=== PATIENT | male | born 1955 | race Caucasian/White ===

== ENCOUNTER 2018-04-08 06:44 | Inpatient (IN) | payer BC, MEDICARE ==
[2018-04-06 10:15] VITALS: BMI 28.7
[2018-04-08] MEDS ORDERED: Midazolam 2 MG/2 ML VIAL ONE (08:12)
[2018-04-08] MEDS ORDERED: Verapamil 2 ML ONE (08:15)
[2018-04-08] MEDS ORDERED: Nitroglycerin 50mg in D5W 50 MG/250 ML BOTTLE IV ONE (08:16)
[2018-04-08] MEDS ORDERED: Iodixanol 320 MG/ML 100 ML BOTTLE IV ONE (08:20)
[2018-04-08] MEDS ORDERED: Iohexol 350mg/ml 100 ML ONE (08:52)
[2018-04-08] MEDS ORDERED: Sodium Chloride 0.45% 1,000 ML IV SCH (09:45)
[2018-04-08] MEDS ORDERED: Enoxaparin 80 mg Syringe SC SCH (10:00)
[2018-04-08] MEDS: (Novolog) Insulin Aspart, Recombinant 100 u/ml 10 ml vial SC SCH ×3 (12:19→22:15)
--- NOTE | 2018-04-08 12:24 | CP.PCM.CON ---
<Mary Fields P - Last Filed: 04/08/18 16:18> History of Present Illness - History of Present Illness History of Present Illness: PGY-1 critical care consult note. Patient is a 63 year old male with PMHx of CAD with stent placement 2014, HTN, DM, HLD who was admitted to ICU for cardiovascular monitoring following cardiac catheterization today demonstrated triple vessel disease involving the RCA (99% occlusion), LAD and circumflex. Patient states he was sent for a catheterization following an abnormal stress test, which was done routinely. Patient denies any chest pain, arm pain, shortness of breath, palpitation, diaphoresis, nausea, vomiting, abdominal pain. Patient does admit to intermittent pedal edema, but not presently. PMHx: CAD with stent placement 2014, HTN, DM, HLD PSHx: Cardiac cath 2014, L foot surgery 2002 Meds: Valsartan 80mg PO daily, Janumet 5-500mg 1 tab PO daily, Lipitor 20mg PO daily, Metoprolol tartrate 25mg PO BID, Plavix 75mg PO daily, ASA 81mg PO daily Allergies: NKDA Social: denies tobacco and illicit drug use. +social drinker- 2x per month, 2-3 beers. Code Status: full code Proxy: Peewee, daughter: [phone] Review of Systems - Review of Systems All systems: reviewed and no additional remarkable complaints except (as per HPI ) Past Patient History - Infectious Disease Hx of Infectious Diseases: None - Past Medical History & Family History Past Medical History?: No - Past Social History Smoking Status: Never Smoked - CARDIAC Hx Cardiac Disorders: Yes (CAD) Hx Angina: Yes Hx Hypercholesterolemia: Yes Hx Hypertension: Yes Hx Peripheral Edema: Yes (NOT AT PRESENT) - PULMONARY Hx Respiratory Disorders: No - NEUROLOGICAL Hx Neurological Disorder: No - HEENT Hx HEENT Problems: No - RENAL Hx Chronic Kidney Disease: No - ENDOCRINE/METABOLIC Hx Endocrine Disorders: Yes Hx Diabetes Mellitus Type 2: Yes - HEMATOLOGICAL/ONCOLOGICAL Hx Blood Disorders: No - INTEGUMENTARY Hx Dermatological Problems: No - MUSCULOSKELETAL/RHEUMATOLOGICAL Hx Musculoskeletal Disorders: No - GASTROINTESTINAL Hx Gastrointestinal Disorders: No - GENITOURINARY/GYNECOLOGICAL Hx Genitourinary Disorders: No - PSYCHIATRIC Hx Psychophysiologic Disorder: No Hx Substance Use: No - SURGICAL HISTORY Hx Surgeries: Yes Hx Cardiac Catheterization: Yes (3 YEARS AGO) Hx Coronary Stent: Yes Hx Orthopedic Surgery: Yes (LEFT FOOT) - ANESTHESIA Hx Anesthesia: Yes Hx Anesthesia Reactions: No Hx Malignant Hyperthermia: No Has any member of the family had a problem w/ anesthesia?: No Meds Allergies/Adverse Reactions: Allergies Allergy/AdvReac Type Severity Reaction Status Date / Time No Known Allergies Allergy Verified 04/22/15 09:48 - Medications Medications: Current Medications Aspirin (Aspirin Chewable) 81 mg PO DAILY [facility] Enoxaparin Sodium (Lovenox) 80 mg SC Q12 [facility] Famotidine (Pepcid) 20 mg PO BID [facility] Sodium Chloride (Sodium Chloride 0.45%) 1,000 mls @ 75 mls/hr IV .[id number] [facility] Stop: 04/08/18 21:45 Insulin Aspart (Novolog) 0 unit SC ACHS [facility] PRN Reason: Protocol Losartan Potassium (Cozaar) 50 mg PO DAILY [facility] Metoprolol Tartrate (Lopressor) 25 mg PO BID [facility] Rosuvastatin Calcium (Crestor) 40 mg PO HS [facility] Sitagliptin Phosphate (Januvia) 50 mg PO DAILY [facility] Physical Exam - Head Exam Head Exam: ATRAUMATIC, NORMOCEPHALIC - Eye Exam Eye Exam: EOMI, PERRL - ENT Exam ENT Exam: Mucous Membranes Moist - Respiratory Exam Respiratory Exam: Clear to Auscultation Bilateral. absent: Rales, Rhonchi, Wheezes - Cardiovascular Exam Cardiovascular Exam: Bradycardia, +S1, +S2 - GI/Abdominal Exam GI & Abdominal Exam: Normal Bowel Sounds, Soft. absent: Rebound, Rigid, Tenderness - Extremities Exam Extremities exam: Positive for: full ROM, pedal pulses present. Negative for: calf tenderness, pedal edema Additional comments: Radial artery compression device noted to R wrist. - Neurological Exam Neurological exam: Alert, CN II-XII Intact, Oriented x3 - Psychiatric Exam Psychiatric exam: Normal Affect, Normal Mood - Skin Skin Exam: Dry, Normal Color, Warm Results - Labs Result Diagrams: 04/08/18 12:34 04/08/18 12:34 Labs: Laboratory Results - last 24 hr 04/08/18 09:31 POC Glucose (mg/dL) 100 Assessment & Plan - Assessment and Plan (Free Text) Plan: Patient is a 63 year old male with PMHx of CAD with stent placement 2014, HTN, DM, HLD who was admitted to ICU for cardiovascular monitoring following cardiac catheterization today demonstrated triple vessel disease involving the RCA (99% occlusion), LAD and circumflex. Patient states he was sent for a catheterization following an abnormal stress test, which was done routinely. Patient denies any chest pain, arm pain, shortness of breath, palpitation, diaphoresis, nausea, vomiting, abdominal pain. Patient does admit to intermittent pedal edema, but not presently. Neuro: AAOx3 Cardiovascular: Cardiac cath today demonstrating triple vessel disease involving the RCA (99% occlusion), LAD and circumflex Possible CABG as per cardio Echo: f/u Dr. Baez, cardiology, on the case. Lipid panel: TG 167, CHL 122, LDL 66, HDL 26 IVF ASA 81mg Lovenox 80mg SC Q12 Losartan 50mg PO daily Metoprolol tartrate 25mg PO BID Crestor PO 40mg HS Respiratory: maintain SpO2>95 Renal: BUN/Cr: 12/0.9 Infectious disease: No white count Hematology: H/H: 15.4/45.4 Gastrointestinal: Healthy heart diet Endocrine: Hgb A1c:7.4 Januvia 50mg PO daily Novolog SC ACHS accuchecks ACHS Prophylaxis: Lovenox 80mg SC Q12, Pepcid 20mg PO BID Discussed with Dr. Deven Wilson. <Herbert Wilson - Last Filed: 04/08/18 18:07> Meds - Medications Medications: Current Medications Aspirin (Aspirin Chewable) 81 mg PO DAILY [facility] Last Admin: 04/08/18 12:15 Dose: 81 mg Enoxaparin Sodium (Lovenox) 80 mg SC Q12 [facility] Famotidine (Pepcid) 20 mg PO BID [facility] Last Admin: 04/08/18 12:17 Dose: 20 mg Sodium Chloride (Sodium Chloride 0.45%) 1,000 mls @ 75 mls/hr IV .[id number] [facility] Stop: 04/08/18 21:45 Last Admin: 04/08/18 12:18 Dose: 75 mls/hr Insulin Aspart (Novolog) 0 unit SC ACHS [facility] PRN Reason: Protocol Last Admin: 04/08/18 17:24 Dose: Not Given Losartan Potassium (Cozaar) 50 mg PO DAILY [facility] Metoprolol Tartrate (Lopressor) 25 mg PO BID [facility] Last Admin: 04/08/18 12:17 Dose: Not Given Rosuvastatin Calcium (Crestor) 40 mg PO HS [facility] Sitagliptin Phosphate (Januvia) 50 mg PO DAILY [facility] Last Admin: 04/08/18 12:16 Dose: 50 mg Results - Vital Signs Recent Vital Signs: Last Vital Signs Temp 97.7 F 04/08/18 16:00 Pulse 51 L 04/08/18 16:13 Resp 18 04/08/18 16:13 BP 140/78 04/08/18 16:13 Pulse Ox 99 04/08/18 16:13 - Labs Result Diagrams: 04/08/18 12:34 04/08/18 12:34 Labs: Laboratory Results - last 24 hr 04/08/18 04/08/18 04/08/18 09:31 11:57 12:34 WBC 9.6 RBC 5.25 Hgb 15.4 Hct 45.4 MCV 86.5 MCH 29.3 MCHC 33.9 RDW 13.8 Plt Count 183 MPV 9.0 Neut % (Auto) 43.6 L Lymph % (Auto) 45.4 H Weber % (Auto) 7.5 Eos % (Auto) 2.5 Baso % (Auto) 1.0 Neut # (Auto) 4.2 Lymph # (Auto) 4.4 H Weber # (Auto) 0.7 Eos # (Auto) 0.2 Baso # (Auto) 0.1 Sodium Potassium Chloride Carbon Dioxide Anion Gap BUN Creatinine Est GFR ( Amer) Est GFR (Non-Af Amer) POC Glucose (mg/dL) 100 105 Random Glucose Hemoglobin A1c Calcium Total Bilirubin AST ALT Alkaline Phosphatase Total Protein Albumin Globulin Albumin/Globulin Ratio Triglycerides Cholesterol LDL Cholesterol Direct HDL Cholesterol 04/08/18 04/08/18 04/08/18 12:34 12:34 16:05 WBC RBC Hgb Hct MCV MCH MCHC RDW Plt Count MPV Neut % (Auto) Lymph % (Auto) Weber % (Auto) Eos % (Auto) Baso % (Auto) Neut # (Auto) Lymph # (Auto) Weber # (Auto) Eos # (Auto) Baso # (Auto) Sodium 143 Potassium 3.9 Chloride 104 Carbon Dioxide 26 Anion Gap 17 BUN 12 Creatinine 0.9 Est GFR ( Amer) > 60 Est GFR (Non-Af Amer) > 60 POC Glucose (mg/dL) 104 Random Glucose 102 Hemoglobin A1c 7.4 H Calcium 9.2 Total Bilirubin 0.9 AST 30 ALT 37 Alkaline Phosphatase 66 Total Protein 7.7 Albumin 4.4 Globulin 3.3 Albumin/Globulin Ratio 1.3 Triglycerides 167 H Cholesterol 122 LDL Cholesterol Direct 66 HDL Cholesterol 26 L Assessment & Plan - Assessment and Plan (Free Text) Plan: Above patient seen and examined at bedside. PAtient post of cardiac cath without any PCI. Patient remains hemodynamically stable. -can be transferred to telemetry - Date & Time Date: 04/08/18 Time: 18:07
[2018-04-08 12:41] LABS: BASO # 0.1 K/uL (0.0-0.2); EOS # 0.2 K/uL (0.0-0.7); EOS % 2.5 % (0.0-4.0); HEMOGLOBIN 15.4 g/dL (12.0-18.0); LYMPH # 4.4 K/uL (1.0-4.3); LYMPH % 45.4 % (20.0-40.0); MEAN CELL VOLUME 86.5 fL (80.0-94.0); MEAN CORPUSCULAR HEMOGLOBIN 29.3 pg (27.0-31.0); MEAN CORPUSCULAR HGB CONC 33.9 g/dL (33.0-37.0); MONO # 0.7 K/uL (0.0-0.8); MONO % 7.5 % (0.0-10.0); NEUT # 4.2 K/uL (1.8-7.0); NEUT % 43.6 % (50.0-75.0); NRBC % 0.2 % (0.0-2.0); RBC 5.25 Mil/uL (4.40-5.90); RED CELL DISTRIBUTION WIDTH 13.8 % (11.5-14.5); WHITE BLOOD COUNT 9.6 K/uL (4.8-10.8)
[2018-04-08 13:03] LABS: ALB/GLOB RATIO 1.3 (1.0-2.1); ALBUMIN 4.4 g/dL (3.5-5.0); ALT/SGPT 37 U/L (21-72); AST/SGOT 30 U/L (17-59); BLOOD UREA NITROGEN 12 mg/dL (9-20); CALCIUM 9.2 mg/dl (8.6-10.4); GFR AFRICAN-AMERICAN > 60; GFR NON-AFRICAN AMERICAN > 60; HDL CHOLESTEROL 26 mg/dL (30-70)
[2018-04-08 13:11] LABS: LDL CHOLESTEROL 66 mg/dL (0-129)
--- NOTE | 2018-04-08 19:03 | CARD ---
APPROVED REPORT Date of service: 04/08/2018 EXAM: Two-dimensional and M-mode echocardiogram with Doppler and color Doppler. Other Information Quality : GoodRhythm : INDICATION Abnormal EKG/Arrhythmia Cardiac Disease: CAD 2D DIMENSIONS IVSd1.1 (0.7-1.1cm)Aortic Root (2D)2.6 (2.0-3.7cm) LVDd4.6 (3.9-5.9cm)PWd1.0 (0.7-1.1cm) LVDs2.8 (2.5-4.0cm)FS (%) 39.3 % LVEF (%)69.8 (>50%) M-Mode DIMENSIONS RVDd2.99 (2.1-3.2cm)Left Atrium (MM)4.35 (2.5-4.0cm) IVSd0.77 (0.7-1.1cm)Aortic Root3.32 (2.2-3.7cm) LVDd5.79 (4.0-5.6cm)Aortic Cusp Exc.1.99 (1.5-2.0cm) PWd0.89 (0.7-1.1cm)FS (%) 44 % LVDs3.25 (2.0-3.8cm)LVEF (%)74 (>50%) Mitral Valve MV E Worevqex33.3cm/sMV A Qjocxjxw68.0cm/sE/A ratio0.7 TDI E/Lateral E'0.0E/Medial E'0.0 Tricuspid Valve TR Peak [id number]/sTR Peak Gr.[id number] LEFT VENTRICLE The left ventricle is normal size. There is normal left ventricular wall thickness. The left ventricular systolic function is normal. The left ventricular ejection fraction is within the normal range. There is borderline hypokinesis in the mid-inferosepta and mid- anterior hunt. Transmitral Doppler flow pattern is Grade I-abnormal relaxation pattern. Normal left atrial pressure by Tissue Doppler. RIGHT VENTRICLE The right ventricle is normal size. The right ventricular systolic function is normal. ATRIA The left atrium size is normal. The right atrium size is normal. AORTIC VALVE The aortic valve is normal in structure. No aortic regurgitation is present. MITRAL VALVE The mitral valve is normal in structure. There is no mitral valve regurgitation noted. TRICUSPID VALVE The tricuspid valve is normal in structure. There is trace to mild tricuspid regurgitation. Right ventricular systolic pressure is estimated at less than 30 mmHg. PULMONIC VALVE The pulmonary valve is normal in structure. There is no pulmonic valvular regurgitation. GREAT VESSELS The aortic root is normal size. The aortic root displays mild to moderate sclerocalcific changes. The IVC is normal in size and collapses >50% with inspiration. PERICARDIAL EFFUSION There is no pericardial effusion. <Conclusion> Normal left ventricular size, wall thickness and systolic function. There is borderline to mild hypokinesis in the mid-inferoseptal and mid- anterior segments of the left ventricle compatible with the history of coronary heart disease. Diastolic dysfunction Grade I-abnormal relaxation pattern. Normal left atrial pressure by Tissue Doppler. The right ventricular systolic function is normal. No gross valvular abnormality. The aortic root displays mild to moderate sclerocalcific changes. There is no pericardial effusion.
--- NOTE | 2018-04-08 19:30 | CARDCATH ---
Copied To: Raghu Baez MD Attending MD: Raghu Baez MD PROCEDURE DATE: 04/08/2018 PROCEDURES: 1. Left heart catheterization. 2. Coronary angiogram. CLINICAL INDICATIONS: 1. Chest pain. 2. Abnormal stress test. 3. History of coronary artery disease, multivessel stenting. 4. Hypertension. 5. Hyperlipidemia. 6. Diabetes. PERFORMING PHYSICIAN: Raghu Baez MD DESCRIPTION OF PROCEDURE: After informed consent, the patient was prepped and draped in the usual sterile fashion. 2% lidocaine was given in the right wrist for local anesthesia. Using micropuncture technique, a 6-Turkish sheath was introduced into the right radial artery. A JR4 6-Turkish diagnostic catheter was crossed into left ventricle across the aortic valve. LV end-diastolic pressure was measured. Contrast injected and the LV angiogram was done. Then, the catheter was pulled back. The gradient across the aortic valve was measured. Then, the same catheter was engaged into the right coronary artery. Contrast injected and right coronary angiogram was done. Then, the catheter was exchanged to 6-Turkish [place] catheter. The catheter was engaged into the left main coronary artery. Contrast injected and left coronary angiogram was done. The patient tolerated the procedure well. Postprocedure, Terumo radial band was applied with excellent hemostasis. Radiological interpretation of the coronary imaging was done. FINDINGS: 1. Left main coronary artery is patent. 2. Ostial LAD has 80% stenosis. 3. Vrb-vp-xqolic LAD stent is patent. D1 has 70% stenosis. 4. Left circumflex is codominant system. Proximal left circumflex has 80% stenosis. Obtuse marginal 1 artery has a 95% stenosis. 5. Right coronary artery has 99% mid stenosis. Distal right coronary artery stent is patent. 6. LV ejection fraction is approximately 50% to 55%. Mild global hypokinesis. EDP is 17. No gradient across the aortic valve. IMPRESSION: 1. Triple-vessel disease as described above. 2. Diabetes. 3. Hypertension. 4. Normal left ventricular systolic function. PLAN: Patient will be admitted to intensive care unit for further management. Raghu Baez MD [facility] # [id number]
[2018-04-08] MEDS: Enoxaparin 80 mg Syringe SC SCH (22:20)
[2018-04-09 06:32] LABS: BASO % 0.4 % (0.0-2.0); EOS # 0.2 K/uL (0.0-0.7); EOS % 2.3 % (0.0-4.0); HEMOGLOBIN 15.2 g/dL (12.0-18.0); LYMPH # 4.4 K/uL (1.0-4.3); LYMPH % 41.3 % (20.0-40.0); MEAN CORPUSCULAR HEMOGLOBIN 29.4 pg (27.0-31.0); MEAN CORPUSCULAR HGB CONC 34.1 g/dL (33.0-37.0); MEAN PLATELET VOLUME 9.5 fL (7.2-11.7); MONO % 9.8 % (0.0-10.0); NEUT # 4.9 K/uL (1.8-7.0); NEUT % 46.2 % (50.0-75.0); NRBC % 0.2 % (0.0-2.0); RBC 5.16 Mil/uL (4.40-5.90); RED CELL DISTRIBUTION WIDTH 13.7 % (11.5-14.5); WHITE BLOOD COUNT 10.6 K/uL (4.8-10.8)
--- NOTE | 2018-04-09 06:36 | CP.PCM.PN ---
Subjective - Date & Time of Evaluation Date of Evaluation: 04/08/18 Time of Evaluation: 19:30 - Subjective Subjective: Patient s/p cath Triple vessel CAD and DM 2 CABG vs. Multi vessel PCI to be decided after d/w the patient and the family Objective - Vital Signs/Intake and Output Vital Signs (last 24 hours): Temp Pulse Resp BP Pulse Ox 98 F 64 19 139/85 98 04/09/18 04:00 04/09/18 05:15 04/09/18 05:15 04/09/18 05:15 04/09/18 05:15 Intake and Output: 04/08/18 04/09/18 18:59 06:59 Intake Total 675 240 Output Total 450 600 Balance 225 -360 - Medications Medications: Current Medications Aspirin (Aspirin Chewable) 81 mg PO DAILY [facility] Last Admin: 04/08/18 12:15 Dose: 81 mg Enoxaparin Sodium (Lovenox) 80 mg SC Q12 [facility] Last Admin: 04/08/18 22:20 Dose: 80 mg Famotidine (Pepcid) 20 mg PO BID [facility] Last Admin: 04/08/18 18:06 Dose: 20 mg Insulin Aspart (Novolog) 0 unit SC [facility] PRN Reason: Protocol Last Admin: 04/08/18 22:15 Dose: Not Given Losartan Potassium (Cozaar) 50 mg PO DAILY [facility] Metoprolol Tartrate (Lopressor) 25 mg PO BID [facility] Last Admin: 04/08/18 18:06 Dose: Not Given Rosuvastatin Calcium (Crestor) 40 mg PO HS [facility] Last Admin: 04/08/18 22:20 Dose: 40 mg Sitagliptin Phosphate (Januvia) 50 mg PO DAILY [facility] Last Admin: 04/08/18 12:16 Dose: 50 mg - Labs Labs: 04/08/18 12:34 04/08/18 12:34
[2018-04-09 06:47] LABS: ALB/GLOB RATIO 1.3 (1.0-2.1); ALBUMIN 3.9 g/dL (3.5-5.0); ALT/SGPT 36 U/L (21-72); AST/SGOT 20 U/L (17-59); BLOOD UREA NITROGEN 15 mg/dL (9-20); GFR AFRICAN-AMERICAN > 60; GFR NON-AFRICAN AMERICAN > 60
--- NOTE | 2018-04-09 08:27 | CP.PCM.HP ---
Past Patient History - Infectious Disease Hx of Infectious Diseases: None - Past Medical History & Family History Past Medical History?: No - Past Social History Smoking Status: Never Smoked - CARDIAC Hx Cardiac Disorders: Yes (CAD) Hx Angina: Yes Hx Hypercholesterolemia: Yes Hx Hypertension: Yes Hx Peripheral Edema: Yes (NOT AT PRESENT) - PULMONARY Hx Respiratory Disorders: No - NEUROLOGICAL Hx Neurological Disorder: No - HEENT Hx HEENT Problems: No - RENAL Hx Chronic Kidney Disease: No - ENDOCRINE/METABOLIC Hx Endocrine Disorders: Yes Hx Diabetes Mellitus Type 2: Yes - HEMATOLOGICAL/ONCOLOGICAL Hx Blood Disorders: No - INTEGUMENTARY Hx Dermatological Problems: No - MUSCULOSKELETAL/RHEUMATOLOGICAL Hx Musculoskeletal Disorders: No - GASTROINTESTINAL Hx Gastrointestinal Disorders: No - GENITOURINARY/GYNECOLOGICAL Hx Genitourinary Disorders: No - PSYCHIATRIC Hx Psychophysiologic Disorder: No Hx Substance Use: No - SURGICAL HISTORY Hx Surgeries: Yes Hx Cardiac Catheterization: Yes (3 YEARS AGO) Hx Coronary Stent: Yes Hx Orthopedic Surgery: Yes (LEFT FOOT) - ANESTHESIA Hx Anesthesia: Yes Hx Anesthesia Reactions: No Hx Malignant Hyperthermia: No Has any member of the family had a problem w/ anesthesia?: No Meds Allergies/Adverse Reactions: Allergies Allergy/AdvReac Type Severity Reaction Status Date / Time No Known Allergies Allergy Verified 04/22/15 09:48 Results - Vital Signs Recent Vital Signs: Last Vital Signs Temp 98 F 04/09/18 04:00 Pulse 64 04/09/18 05:15 Resp 19 04/09/18 05:15 BP 139/85 04/09/18 05:15 Pulse Ox 98 04/09/18 05:15 - Labs Result Diagrams: 04/09/18 06:21 04/09/18 06:17 Labs: Laboratory Results - last 24 hr 04/08/18 04/08/18 04/08/18 09:31 11:57 12:34 WBC 9.6 RBC 5.25 Hgb 15.4 Hct 45.4 MCV 86.5 MCH 29.3 MCHC 33.9 RDW 13.8 Plt Count 183 MPV 9.0 Neut % (Auto) 43.6 L Lymph % (Auto) 45.4 H [place] % (Auto) 7.5 Eos % (Auto) 2.5 Baso % (Auto) 1.0 Neut # (Auto) 4.2 Lymph # (Auto) 4.4 H [place] # (Auto) 0.7 Eos # (Auto) 0.2 Baso # (Auto) 0.1 Sodium Potassium Chloride Carbon Dioxide Anion Gap BUN Creatinine Est GFR ( Amer) Est GFR (Non-Af Amer) POC Glucose (mg/dL) 100 105 Random Glucose Hemoglobin A1c Calcium Phosphorus Magnesium Total Bilirubin AST ALT Alkaline Phosphatase Total Protein Albumin Globulin Albumin/Globulin Ratio Triglycerides Cholesterol LDL Cholesterol Direct HDL Cholesterol 04/08/18 04/08/18 04/08/18 12:34 12:34 16:05 WBC RBC Hgb Hct MCV MCH MCHC RDW Plt Count MPV Neut % (Auto) Lymph % (Auto) [place] % (Auto) Eos % (Auto) Baso % (Auto) Neut # (Auto) Lymph # (Auto) [place] # (Auto) Eos # (Auto) Baso # (Auto) Sodium 143 Potassium 3.9 Chloride 104 Carbon Dioxide 26 Anion Gap 17 BUN 12 Creatinine 0.9 Est GFR ( Amer) > 60 Est GFR (Non-Af Amer) > 60 POC Glucose (mg/dL) 104 Random Glucose 102 Hemoglobin A1c 7.4 H Calcium 9.2 Phosphorus Magnesium Total Bilirubin 0.9 AST 30 ALT 37 Alkaline Phosphatase 66 Total Protein 7.7 Albumin 4.4 Globulin 3.3 Albumin/Globulin Ratio 1.3 Triglycerides 167 H Cholesterol 122 LDL Cholesterol Direct 66 HDL Cholesterol 26 L 04/09/18 04/09/18 06:17 06:21 WBC 10.6 RBC 5.16 Hgb 15.2 Hct 44.4 MCV 86.0 MCH 29.4 MCHC 34.1 RDW 13.7 Plt Count 204 MPV 9.5 Neut % (Auto) 46.2 L Lymph % (Auto) 41.3 H [place] % (Auto) 9.8 Eos % (Auto) 2.3 Baso % (Auto) 0.4 Neut # (Auto) 4.9 Lymph # (Auto) 4.4 H [place] # (Auto) 1.0 H Eos # (Auto) 0.2 Baso # (Auto) 0.0 Sodium 142 Potassium 3.8 Chloride 103 Carbon Dioxide 25 Anion Gap 18 BUN 15 Creatinine 1.0 Est GFR ( Amer) > 60 Est GFR (Non-Af Amer) > 60 POC Glucose (mg/dL) Random Glucose 81 Hemoglobin A1c Calcium 8.0 L Phosphorus 3.6 Magnesium 1.9 Total Bilirubin 0.6 AST 20 ALT 36 Alkaline Phosphatase 56 Total Protein 6.9 Albumin 3.9 Globulin 3.0 Albumin/Globulin Ratio 1.3 Triglycerides Cholesterol LDL Cholesterol Direct HDL Cholesterol
[2018-04-09] MEDS: (Novolog) Insulin Aspart, Recombinant 100 u/ml 10 ml vial SC SCH ×4 (09:03→22:21)
[2018-04-09] MEDS: Enoxaparin 80 mg Syringe SC SCH ×2 (09:21→21:19)
--- NOTE | 2018-04-10 00:21 | CP.PCM.PN ---
Subjective - Date & Time of Evaluation Date of Evaluation: 04/09/18 Time of Evaluation: 13:05 - Subjective Subjective: Patient seen and evaluated Denies chest pain and dyspnea Triple vessel CAD and DM 2 Recommend CABG Patient will let me know CABG Vs. PCI by tomorrow PMHx: CAD with stent placement 2015, HTN, DM, HLD PSHx: Cardiac cath 2014, L foot surgery 2002 Meds: Valsartan 80mg PO daily, Janumet 5-500mg 1 tab PO daily, Lipitor 20mg PO daily, Metoprolol tartrate 25mg PO BID, Plavix 75mg PO daily, ASA 81mg PO daily Allergies: NKDA Social: denies tobacco and illicit drug use. +social drinker- 2x per month, 2-3 beers. Code Status: full code Proxy: Peewee daughter: [phone] Review of Systems - Review of Systems All systems: reviewed and no additional remarkable complaints except (as per HPI ) Physical Exam - Head Exam Head Exam: ATRAUMATIC, NORMOCEPHALIC - Eye Exam Eye Exam: EOMI, PERRL - ENT Exam ENT Exam: Mucous Membranes Moist - Respiratory Exam Respiratory Exam: Clear to Auscultation Bilateral. absent: Rales, Rhonchi, Wheezes - Cardiovascular Exam Cardiovascular Exam: Bradycardia, +S1, +S2 - GI/Abdominal Exam GI & Abdominal Exam: Normal Bowel Sounds, Soft. absent: Rebound, Rigid, Tenderness - Extremities Exam Extremities exam: Positive for: full ROM, pedal pulses present. Negative for: calf tenderness, pedal edema Additional comments: Radial artery compression device noted to R wrist. - Neurological Exam Neurological exam: Alert, CN II-XII Intact, Oriented x3 - Psychiatric Exam Psychiatric exam: Normal Affect, Normal Mood - Skin Skin Exam: Dry, Normal Color, Warm Objective - Vital Signs/Intake and Output Vital Signs (last 24 hours): Temp Pulse Resp BP Pulse Ox 98.6 F 57 L 16 159/90 H 97 04/09/18 20:00 04/09/18 18:00 04/09/18 16:00 04/09/18 18:00 04/09/18 16:00 Intake and Output: 04/09/18 04/10/18 18:59 06:59 Intake Total 800 Output Total 850 Balance -50 - Medications Medications: Current Medications Aspirin (Aspirin Chewable) 81 mg PO DAILY [facility] Last Admin: 04/09/18 09:19 Dose: 81 mg Enoxaparin Sodium (Lovenox) 80 mg SC Q12 [facility] Last Admin: 04/09/18 21:19 Dose: 80 mg Famotidine (Pepcid) 20 mg PO BID [facility] Last Admin: 04/09/18 18:00 Dose: 20 mg Insulin Aspart (Novolog) 0 unit SC ACHS [facility] PRN Reason: Protocol Last Admin: 04/09/18 22:21 Dose: Not Given Losartan Potassium (Cozaar) 50 mg PO DAILY [facility] Last Admin: 04/09/18 09:20 Dose: 50 mg Metoprolol Tartrate (Lopressor) 25 mg PO BID [facility] Last Admin: 04/09/18 18:00 Dose: 25 mg Rosuvastatin Calcium (Crestor) 40 mg PO HS [facility] Last Admin: 04/09/18 21:18 Dose: 40 mg Sitagliptin Phosphate (Januvia) 50 mg PO DAILY [facility] Last Admin: 04/09/18 09:20 Dose: 50 mg - Labs Labs: 04/09/18 06:21 04/09/18 06:17 Assessment and Plan - Assessment and Plan (Free Text) Assessment: Patient s/p cath Triple vessel CAD and DM 2 CABG vs. Multi vessel PCI to be decided after d/w the patient and the family
[2018-04-10 06:46] LABS: BASO # 0.1 K/uL (0.0-0.2); BASO % 0.6 % (0.0-2.0); EOS # 0.4 K/uL (0.0-0.7); EOS % 3.4 % (0.0-4.0); HEMOGLOBIN 15.5 g/dL (12.0-18.0); LYMPH % 37.6 % (20.0-40.0); MEAN CELL VOLUME 87.2 fL (80.0-94.0); MEAN CORPUSCULAR HEMOGLOBIN 29.1 pg (27.0-31.0); MEAN CORPUSCULAR HGB CONC 33.4 g/dL (33.0-37.0); MEAN PLATELET VOLUME 9.5 fL (7.2-11.7); MONO # 1.1 K/uL (0.0-0.8); MONO % 10.5 % (0.0-10.0); NEUT # 5.1 K/uL (1.8-7.0); NEUT % 47.9 % (50.0-75.0); NRBC % 0.1 % (0.0-2.0); RBC 5.31 Mil/uL (4.40-5.90); WHITE BLOOD COUNT 10.7 K/uL (4.8-10.8)
[2018-04-10 06:50] LABS: ALB/GLOB RATIO 1.3 (1.0-2.1); ALBUMIN 4.2 g/dL (3.5-5.0); ALT/SGPT 45 U/L (21-72); AST/SGOT 39 U/L (17-59); BLOOD UREA NITROGEN 14 mg/dL (9-20); CALCIUM 9.3 mg/dl (8.6-10.4); GFR AFRICAN-AMERICAN > 60; GFR NON-AFRICAN AMERICAN > 60
[2018-04-10] MEDS: Enoxaparin 80 mg Syringe SC SCH ×2 (11:41→21:41)
[2018-04-10] MEDS: (Novolog) Insulin Aspart, Recombinant 100 u/ml 10 ml vial SC SCH ×4 (11:41→22:00)
--- NOTE | 2018-04-10 22:14 | CP.PCM.PN ---
Subjective - Date & Time of Evaluation Date of Evaluation: 04/10/18 Time of Evaluation: 18:20 - Subjective Subjective: Patient would like to go for CABG To be transferred tomorrow for CABG sometime this week Continue current meds Physical Exam - Head Exam Head Exam: ATRAUMATIC, NORMOCEPHALIC - Eye Exam Eye Exam: EOMI, PERRL - ENT Exam ENT Exam: Mucous Membranes Moist - Respiratory Exam Respiratory Exam: Clear to Auscultation Bilateral. absent: Rales, Rhonchi, Wheezes - Cardiovascular Exam Cardiovascular Exam: Bradycardia, +S1, +S2 - GI/Abdominal Exam GI & Abdominal Exam: Normal Bowel Sounds, Soft. absent: Rebound, Rigid, Tenderness - Extremities Exam Extremities exam: Positive for: full ROM, pedal pulses present. Negative for: calf tenderness, pedal edema Additional comments: Radial artery compression device noted to R wrist. - Neurological Exam Neurological exam: Alert, CN II-XII Intact, Oriented x3 - Psychiatric Exam Psychiatric exam: Normal Affect, Normal Mood - Skin Skin Exam: Dry, Normal Color, Warm Objective - Vital Signs/Intake and Output Vital Signs (last 24 hours): Temp Pulse Resp BP Pulse Ox 98.0 F 62 18 121/78 98 04/10/18 16:00 04/10/18 16:00 04/10/18 16:00 04/10/18 17:33 04/10/18 16:00 Intake and Output: 04/10/18 04/11/18 18:59 06:59 Intake Total 1160 Output Total 750 Balance 410 - Medications Medications: Current Medications Aspirin (Aspirin Chewable) 81 mg PO DAILY [facility] Last Admin: 04/10/18 11:40 Dose: 81 mg Enoxaparin Sodium (Lovenox) 80 mg SC Q12 [facility] Last Admin: 04/10/18 21:41 Dose: 80 mg Famotidine (Pepcid) 20 mg PO BID [facility] Last Admin: 04/10/18 17:33 Dose: 20 mg Insulin Aspart (Novolog) 0 unit SC ACHS [facility] PRN Reason: Protocol Last Admin: 04/10/18 17:31 Dose: Not Given Losartan Potassium (Cozaar) 50 mg PO DAILY [facility] Last Admin: 04/10/18 11:40 Dose: 50 mg Metoprolol Tartrate (Lopressor) 25 mg PO BID [facility] Last Admin: 08/12/18 17:33 Dose: 25 mg Rosuvastatin Calcium (Crestor) 40 mg PO HS [facility] Last Admin: 04/10/18 21:41 Dose: 40 mg Sitagliptin Phosphate (Januvia) 50 mg PO DAILY [facility] Last Admin: 04/10/18 11:40 Dose: 50 mg - Labs Labs: 04/10/18 06:26 04/10/18 06:26 Assessment and Plan - Assessment and Plan (Free Text) Assessment: Patient is a 63 year old male with PMHx of CAD with stent placement 2014, HTN, DM, HLD who was admitted to ICU for cardiovascular monitoring following cardiac catheterization today demonstrated triple vessel disease involving the RCA (99% occlusion), LAD and circumflex. Patient states he was sent for a catheterization following an abnormal stress test, which was done routinely. Patient denies any chest pain, arm pain, shortness of breath, palpitation, diaphoresis, nausea, vomiting, abdominal pain. Patient does admit to intermittent pedal edema, but not presently. Neuro: AAOx3 Cardiovascular: Cardiac cath today demonstrating triple vessel disease involving the RCA (99% occlusion), LAD and circumflex For CABG sometime this week For transfer to [facility] [place] [place] tomorrow Respiratory: maintain SpO2>95 Renal: BUN/Cr: 12/0.9 Infectious disease: No white count Hematology: H/H: 15.4/45.4 Gastrointestinal: Healthy heart diet Endocrine: Hgb A1c:7.4 Januvia 50mg PO daily Novolog SC ACHS accuchecks ACHS Prophylaxis: Lovenox 80mg SC Q12, Pepcid 20mg PO BID
[2018-04-11 06:26] LABS: BASO # 0.1 K/uL (0.0-0.2); BASO % 0.5 % (0.0-2.0); EOS # 0.4 K/uL (0.0-0.7); EOS % 3.6 % (0.0-4.0); HEMOGLOBIN 15.7 g/dL (12.0-18.0); LYMPH # 3.5 K/uL (1.0-4.3); LYMPH % 35.9 % (20.0-40.0); MEAN CELL VOLUME 87.1 fL (80.0-94.0); MEAN CORPUSCULAR HEMOGLOBIN 29.2 pg (27.0-31.0); MEAN CORPUSCULAR HGB CONC 33.5 g/dL (33.0-37.0); MEAN PLATELET VOLUME 9.5 fL (7.2-11.7); MONO # 1.1 K/uL (0.0-0.8); MONO % 11.1 % (0.0-10.0); NEUT # 4.8 K/uL (1.8-7.0); NEUT % 48.9 % (50.0-75.0); NRBC % 0.5 % (0.0-2.0); RBC 5.39 Mil/uL (4.40-5.90); RED CELL DISTRIBUTION WIDTH 13.8 % (11.5-14.5); WHITE BLOOD COUNT 9.9 K/uL (4.8-10.8)
[2018-04-11 06:44] LABS: INR 1.1; PROTHROMBIN TIME 12.5 SECONDS (9.7-12.2)
[2018-04-11 06:47] LABS: ALB/GLOB RATIO 1.3 (1.0-2.1); ALBUMIN 4.4 g/dL (3.5-5.0); ALT/SGPT 113 U/L (21-72); AST/SGOT 72 U/L (17-59); BLOOD UREA NITROGEN 18 mg/dL (9-20); CALCIUM 9.4 mg/dl (8.6-10.4); GFR AFRICAN-AMERICAN > 60; GFR NON-AFRICAN AMERICAN > 60
[2018-04-11] MEDS: (Novolog) Insulin Aspart, Recombinant 100 u/ml 10 ml vial SC SCH ×3 (07:30→17:06)
--- NOTE | 2018-04-11 08:49 | CP.PCM.PN ---
Subjective - Date & Time of Evaluation Date of Evaluation: 04/09/18 Objective - Vital Signs/Intake and Output Vital Signs (last 24 hours): Temp Pulse Resp BP Pulse Ox 98.5 F 59 L 18 150/94 H 98 04/11/18 04:00 04/11/18 04:00 04/11/18 04:00 04/11/18 04:00 04/11/18 00:00 Intake and Output: 04/11/18 04/11/18 06:59 18:59 Intake Total 100 Output Total 1100 Balance -1000 - Medications Medications: Current Medications Aspirin (Aspirin Chewable) 81 mg PO DAILY [facility] Last Admin: 04/10/18 11:40 Dose: 81 mg Enoxaparin Sodium (Lovenox) 80 mg SC Q12 [facility] Last Admin: 04/10/18 21:41 Dose: 80 mg Famotidine (Pepcid) 20 mg PO BID [facility] Last Admin: 04/10/18 17:33 Dose: 20 mg Insulin Aspart (Novolog) 0 unit SC [facility] PRN Reason: Protocol Last Admin: 04/10/18 22:00 Dose: Not Given Losartan Potassium (Cozaar) 50 mg PO DAILY [facility] Last Admin: 04/10/18 11:40 Dose: 50 mg Metoprolol Tartrate (Lopressor) 25 mg PO BID [facility] Last Admin: 04/10/18 17:33 Dose: 25 mg Rosuvastatin Calcium (Crestor) 40 mg PO HS [facility] Last Admin: 04/10/18 21:41 Dose: 40 mg Sitagliptin Phosphate (Januvia) 50 mg PO DAILY [facility] Last Admin: 04/10/18 11:40 Dose: 50 mg - Labs Labs: 04/11/18 06:17 04/11/18 06:17 PT 12.5 SECONDS (9.7-12.2) H 04/11/18 06:17 INR 1.1 04/11/18 06:17 APTT 51 SECONDS (21-34) H 04/11/18 06:17
--- NOTE | 2018-04-11 08:49 | CP.PCM.PN ---
Subjective - Date & Time of Evaluation Date of Evaluation: 04/10/18 Objective - Vital Signs/Intake and Output Vital Signs (last 24 hours): Temp Pulse Resp BP Pulse Ox 98.5 F 59 L 18 150/94 H 98 04/11/18 04:00 04/11/18 04:00 04/11/18 04:00 04/11/18 04:00 04/11/18 00:00 Intake and Output: 04/11/18 04/11/18 06:59 18:59 Intake Total 100 Output Total 1100 Balance -1000 - Medications Medications: Current Medications Aspirin (Aspirin Chewable) 81 mg PO DAILY [facility] Last Admin: 04/10/18 11:40 Dose: 81 mg Enoxaparin Sodium (Lovenox) 80 mg SC Q12 [facility] Last Admin: 04/10/18 21:41 Dose: 80 mg Famotidine (Pepcid) 20 mg PO BID [facility] Last Admin: 04/10/18 17:33 Dose: 20 mg Insulin Aspart (Novolog) 0 unit SC [facility] PRN Reason: Protocol Last Admin: 04/10/18 22:00 Dose: Not Given Losartan Potassium (Cozaar) 50 mg PO DAILY [facility] Last Admin: 04/10/18 11:40 Dose: 50 mg Metoprolol Tartrate (Lopressor) 25 mg PO BID [facility] Last Admin: 04/10/18 17:33 Dose: 25 mg Rosuvastatin Calcium (Crestor) 40 mg PO HS [facility] Last Admin: 04/10/18 21:41 Dose: 40 mg Sitagliptin Phosphate (Januvia) 50 mg PO DAILY [facility] Last Admin: 04/10/18 11:40 Dose: 50 mg - Labs Labs: 04/11/18 06:17 04/11/18 06:17 PT 12.5 SECONDS (9.7-12.2) H 04/11/18 06:17 INR 1.1 04/11/18 06:17 APTT 51 SECONDS (21-34) H 04/11/18 06:17
--- NOTE | 2018-04-11 09:37 | CP.PCM.PN ---
<Ally Goldberg - Last Filed: 04/11/18 15:12> Subjective - Date & Time of Evaluation Date of Evaluation: 04/11/18 Time of Evaluation: 09:36 - Subjective Subjective: Cardiology Progress Note - Dr Baez Patient seen and examined at bedside. Per nursing no acute events overnight. Patient to be transferred to [facility] for CABG. Offers no complaints at this time. Denies chest pain or dyspnea. Objective - Vital Signs/Intake and Output Vital Signs (last 24 hours): Temp Pulse Resp BP Pulse Ox 98.5 F 59 L 18 150/94 H 98 04/11/18 04:00 04/11/18 04:00 04/11/18 04:00 04/11/18 04:00 04/11/18 00:00 Intake and Output: 04/11/18 04/11/18 06:59 18:59 Intake Total 100 Output Total 1100 Balance -1000 - Medications Medications: Current Medications Aspirin (Aspirin Chewable) 81 mg PO DAILY [facility] Last Admin: 04/10/18 11:40 Dose: 81 mg Enoxaparin Sodium (Lovenox) 80 mg SC Q12 [facility] Last Admin: 04/10/18 21:41 Dose: 80 mg Famotidine (Pepcid) 20 mg PO BID [facility] Last Admin: 04/10/18 17:33 Dose: 20 mg Insulin Aspart (Novolog) 0 unit SC [facility] PRN Reason: Protocol Last Admin: 04/10/18 22:00 Dose: Not Given Losartan Potassium (Cozaar) 50 mg PO DAILY [facility] Last Admin: 04/10/18 11:40 Dose: 50 mg Metoprolol Tartrate (Lopressor) 25 mg PO BID [facility] Last Admin: 04/10/18 17:33 Dose: 25 mg Rosuvastatin Calcium (Crestor) 40 mg PO HS [facility] Last Admin: 04/10/18 21:41 Dose: 40 mg Sitagliptin Phosphate (Januvia) 50 mg PO DAILY [facility] Last Admin: 04/10/18 11:40 Dose: 50 mg - Labs Labs: 04/11/18 06:17 04/11/18 06:17 PT 12.5 SECONDS (9.7-12.2) H 04/11/18 06:17 INR 1.1 04/11/18 06:17 APTT 51 SECONDS (21-34) H 04/11/18 06:17 - Constitutional Appears: Well - Head Exam Head Exam: ATRAUMATIC, NORMAL INSPECTION, NORMOCEPHALIC - Eye Exam Eye Exam: EOMI, Normal appearance - Neck Exam Neck Exam: Full ROM - Respiratory Exam Respiratory Exam: Clear to Ausculation Bilateral, NORMAL BREATHING PATTERN. absent: Rales, Rhonchi, Wheezes - Cardiovascular Exam Cardiovascular Exam: REGULAR RHYTHM, +S1, +S2 - GI/Abdominal Exam GI & Abdominal Exam: Soft. absent: Tenderness - Extremities Exam Extremities Exam: Normal Inspection - Neurological Exam Neurological Exam: Alert, Awake, Oriented x3 - Psychiatric Exam Psychiatric exam: Normal Affect, Normal Mood - Skin Skin Exam: Normal Color, Warm Assessment and Plan - Assessment and Plan (Free Text) Assessment: A/P: Patient is a 63 year old male with past medical history of CAD s/p stents, DM, HTN who presented for cardiac cath found to have Triple vessel CAD -Stable, afebrile -Continue ASA 81mg PO daily and Lovenox 80mg Q12 -Continue Cozaar 50mg PO daily, Metoprolol 25mg PO BID -Crestor 40mg PO HS -LFTs mildly elevated, will continue to monitor -Continue Glycemic control -Patient to be transferred for CABG, awaiting bed -Plan discussed with Dr Nestor Goldberg DO PGY-2 <Raghu Baez - Last Filed: 04/11/18 21:58> Objective - Vital Signs/Intake and Output Vital Signs (last 24 hours): Temp Pulse Resp BP Pulse Ox 98 F 54 L 20 131/81 98 04/11/18 17:10 04/11/18 17:10 04/11/18 17:10 04/11/18 17:10 04/11/18 17:10 Intake and Output: 04/11/18 04/12/18 18:59 06:59 Intake Total 760 Output Total 1000 Balance -240 - Labs Labs: 04/11/18 06:17 04/11/18 06:17 PT 12.5 SECONDS (9.7-12.2) H 04/11/18 06:17 INR 1.1 04/11/18 06:17 APTT 51 SECONDS (21-34) H 04/11/18 06:17 Assessment and Plan - Assessment and Plan (Free Text) Assessment: Patient seen and evaluated personally by me. Plan of care d/w the medical record transcriber and as documented
[2018-04-11] MEDS: Enoxaparin 80 mg Syringe SC SCH (10:16)
[2018-04-11 15:52] VITALS: RESP 20; TEMP 98
[2018-04-11 17:11] VITALS: BP 131/81; PULSE 54; O2SAT 98
== END 2018-04-11 19:17 | disposition short-term general hospital (02) | DRG 287 ==
LOC: C.CATHLAB 06:44 → C.9I 09:30 → C.6T 04-11 14:38
PROVIDERS: ADMIT Internal Medicine; ATTEND Internal Medicine
PROC: B2111ZZ Fluoroscopy of Multiple Coronary Arteries using Low Osmolar Contrast (ICD-10-PCS; 2018-04-08)
PROC: B2131ZZ Fluoroscopy of Multiple Coronary Artery Bypass Grafts using Low Osmolar Contrast (ICD-10-PCS; 2018-04-08)
PROC: 4A023N7 Measurement of Cardiac Sampling and Pressure, Left Heart, Percutaneous Approach (ICD-10-PCS; principal; 2018-04-08 08:00)
DX: I25.10 Atherosclerotic heart disease of native coronary artery without angina pectoris (principal); I10 Essential (primary) hypertension; E78.5 Hyperlipidemia, unspecified; E11.9 Type 2 diabetes mellitus without complications; Z79.84 Long term (current) use of oral hypoglycemic drugs; Z95.5 Presence of coronary angioplasty implant and graft